=== PATIENT | female | born 1945 | race Caucasian/White ===

== ENCOUNTER 2016-08-04 14:46 | Emergency (ER) | payer OTHER ==
[2016-08-04] MEDS ORDERED: ASPIRIN PO STA (14:59)
--- NOTE | 2016-08-04 15:17 | EKG Report ---
Test Performed on : 08/04/2016 3:07:45 PM Test Reason : CP Blood Pressure : / mmHG Vent. Rate : 068 BPM Atrial Rate : 068 BPM P-R Int : 156 ms QRS Dur : 074 ms QT Int : 408 ms P-R-T Axes : 062 -07 057 degrees QTc Int : 433 ms Normal sinus rhythm. Normal ECG No previous ECGs available Unconfirmed Result
[2016-08-04 15:24] LABS: MANUAL DIFF NEEDED? NO
--- NOTE | 2016-08-04 15:27 | PROVIDER DOCUMENTATION ---
HPI-Chest Pain - General Source: patient - History of Present Illness-CP Location: reports: substernal Chest Pain Radiation: reports: jaw, arms (left) Quality of Pain: reports: dull Severity in ED: mild Onset/Duration: abrupt, other (2 weeks) Timing: still present, intermittent Context/Activities at Onset: reports: none Modifying Factors: improves with: nothing Associated Symptoms: denies: back pain, fatigue, headache, nausea, shortness of breath, vomiting Nitro Today/Relief: no nitro taken today Aspirin Treatment Today: 325 mg x 1, provided by ED Prior Chest Pain/Cardiac Workup: reports: no prior chest pain Similar Symptoms Previously?: No Recently Seen Here or By Another Healthcare Provider: No <Yandel Cardoza - Last Filed: 08/04/16 15:22> <Melania Clifford - Last Filed: 08/04/16 18:14> - General Chief Complaint: Chest Pain Stated Complaint: CHEST PAIN Time Seen by Provider: 08/04/16 15:09 Allergies/Adverse Reactions: Patient Allergies Allergy/AdvReac Type Severity Reaction Status Date / Time No Known Allergies Allergy Verified 08/04/16 15:30 Home Medications: Cyanocobalamin/Cobamamide [B12 5,000 Mcg Microlozenge] 2,500 mcg 08/04/16 Levothyroxine [Synthroid] 100 mcg DAILY 08/04/16 Simvastatin 10 mg 08/04/16 Valacyclovir HCl [Valacyclovir] 1 gm 08/04/16 - History of Present Illness-CP Nature of Presenting Problem: patient is a 70 y/o F that presents with chest pain that radiates to jaw and left arm that is intermitted for past two weeks. patient has no shortness of breath, n/v/, or back pain. patient has no history of CAD. hasn't taken nitro before as well (Yandel Cardoza) Review of Systems - Adult - REVIEW OF SYSTEMS - ADULT Constitutional: denies: chills, fever Eyes: denies: decreased vision, blurred vision, double vision Ears, Nose, Mouth & Throat: denies: ear pain, sinus problem, throat pain, throat swelling Cardiovascular: reports: chest pain. denies: palpitations, syncope Respiratory: denies: cough, shortness of breath, wheezing Gastrointestinal: denies: abdominal pain, diarrhea, nausea, vomiting Genitourinary: reports: no symptoms reported Musculoskeletal: reports: no symptoms reported Integumentary: reports: no symptoms reported Neurological: reports: no symptoms reported Psychiatric: reports: no symptoms reported Endocrine: reports: no symptoms reported Hematologic/Lymphatic: reports: no symptoms reported Allergic/Immunologic: reports: no symptoms reported All Other Systems: Reviewed and Negative <Yandel Cardoza - Last Filed: 08/04/16 15:22> Past History - Adult - PAST MEDICAL HISTORY-ADULT Review of Records: reports: Old Records Reviewed, Nursing Assessment Review, Medications Reviewed Musculoskeletal: reports: arthritis Endocrine/Immune: reports: thyroid disorder - PRIOR SURGERIES/PROCEDURES Surgical/Procedure History: reports: appendectomy - IMMUNIZATION STATUS Childhood Immunizations: See Nurse Assessment Flu Vaccine: See Nurse Assessment - FAMILY HISTORY Family History: reviewed, not pertinent - SOCIAL HISTORY Smoking: quit greater than 1 year, cigarettes Living Situation: family <Yandel Cardoza - Last Filed: 08/04/16 15:22> Physical Exam-General - PHYSICAL EXAM-ADULT Initial Vital Signs Reviewed: Yes - CONSTITUTIONAL General Appearance: alert, no apparent distress - EYES Eyes: PERRL/EOMI, pink conjunctivae - HEAD, EARS, NOSE, MOUTH & THROAT HENMT: normocephalic/atraumatic, moist mucous membranes, normal ENT inspection - NECK Neck: full range of motion, normal inspection. negative: lymphadenopathy - RESPIRATORY Respiratory: lungs clear, normal breath sounds, no respiratory distress, no accessory muscle use - CARDIOVASCULAR Cardiovascular: regular rate, rhythm, no edema, no murmur - GASTROINTESTINAL (ABDOMEN) Abdominal Exam: normal bowel sounds, non tender, soft, no organomegaly, no pulsatile mass - MUSCULOSKELETAL Back Exam: no CVA tenderness, no vertebral tenderness Extremity: normal range of motion, non-tender, normal inspection, no pedal edema - SKIN Integumentary: normal color, warm/dry - NEUROLOGIC Neurologic: grossly normal, no motor/sensory deficits - PSYCHIATRIC Psych/Mental Status: normal mood/affect, normal thought content, normal thought process, oriented x 3 <Yandle Cardoza - Last Filed: 08/04/16 15:22> Progress - EKG 1 Time of EKG reading by physician:: 15:07 EKG Read and Signed by:: Torsten Jones EKG Interpretation (*Must complete 3 of following elements*): Normal Rate: 68 Rhythm: NSR [place]: normal QRS: normal [place] Interval: normal ST Wave: normal <Ynadel Cardoza - Last Filed: 08/04/16 15:22> - REASSESSMENT Reassessment #1 Time Reassessed: 16:55 (STates not currently having chest pain. Discussed first round of labs and that we are waiting on a second set. ) Status: unchanged <Melania Clifford - Last Filed: 08/04/16 18:14> - PLAN OF CARE/RESULTS Progress/Plan/Lab Results: Vital Signs Temp Pulse Resp BP Pulse Ox 08/04/16 18:00 59 L 19 128/68 98 08/04/16 17:45 63 19 128/70 99 08/04/16 17:30 60 18 136/74 98 08/04/16 17:15 60 16 144/70 98 08/04/16 17:00 62 17 134/70 98 08/04/16 16:45 61 17 131/74 98 08/04/16 16:30 62 22 139/72 98 08/04/16 16:15 61 19 135/73 99 08/04/16 16:00 61 16 142/68 98 08/04/16 15:45 56 L 19 142/71 100 08/04/16 15:30 63 18 153/62 100 08/04/16 15:15 62 20 139/85 100 08/04/16 14:47 98.0 F 71 20 157/98 No Known Allergies Allergy (Verified 08/04/16 15:30) Cyanocobalamin/Cobamamide [B12 5,000 Mcg Microlozenge] 2,500 mcg 08/04/16 Levothyroxine [Synthroid] 100 mcg DAILY 08/04/16 Simvastatin 10 mg 08/04/16 Valacyclovir HCl [Valacyclovir] 1 gm 08/04/16 Laboratory 08/04/16 08/04/16 08/04/16 17:10 17:10 15:19 WBC RBC Hgb Hct MCV MCH MCHC RDW Std Deviation Plt Count MPV Immature Gran % (Auto) Neut % (Auto) Lymph % (Auto) [place] % (Auto) Eos % (Auto) Baso % (Auto) Immature Gran # (Auto) Neut # (Auto) Lymph # (Auto) [place] # (Auto) Eos # (Auto) Baso # (Auto) PT 12.4 INR 0.89 Sodium Potassium Chloride Carbon Dioxide Anion Gap BUN Creatinine Estimated GFR/1.73 m2 BUN/Creatinine Ratio Glucose Calculated Osmolality Calcium Total Bilirubin AST ALT Alkaline Phosphatase Creatine Kinase 72 Troponin T < 0.010 Total Protein Albumin Globulin Albumin/Globulin Ratio 08/04/16 08/04/16 08/04/16 15:19 15:19 15:19 WBC 7.81 RBC 3.90 L Hgb 11.9 L Hct 37.1 MCV 95.1 MCH 30.5 MCHC 32.1 L RDW Std Deviation 12.2 Plt Count 199 MPV 9.2 Immature Gran % (Auto) 0.1 Neut % (Auto) 65.3 Lymph % (Auto) 21.9 [place] % (Auto) 8.6 Eos % (Auto) 3.7 Baso % (Auto) 0.4 Immature Gran # (Auto) 0.01 Neut # (Auto) 5.10 Lymph # (Auto) 1.71 [place] # (Auto) 0.67 H Eos # (Auto) 0.29 Baso # (Auto) 0.03 PT INR Sodium 139 Potassium 3.9 Chloride 104 Carbon Dioxide 27 Anion Gap 8 BUN 18 Creatinine 0.7 Estimated GFR/1.73 m2 > 60 BUN/Creatinine Ratio 26 Glucose 108 H Calculated Osmolality 280 Calcium 9.7 Total Bilirubin 0.20 AST 24 ALT 21 Alkaline Phosphatase 54 Creatine Kinase Troponin T < 0.010 Total Protein 7.1 Albumin 4.2 Globulin 3.0 Albumin/Globulin Ratio 1.0 08/04/16 15:19 WBC RBC Hgb Hct MCV MCH MCHC RDW Std Deviation Plt Count MPV Immature Gran % (Auto) Neut % (Auto) Lymph % (Auto) [place] % (Auto) Eos % (Auto) Baso % (Auto) Immature Gran # (Auto) Neut # (Auto) Lymph # (Auto) [place] # (Auto) Eos # (Auto) Baso # (Auto) PT INR Sodium Potassium Chloride Carbon Dioxide Anion Gap BUN Creatinine Estimated GFR/1.73 m2 BUN/Creatinine Ratio Glucose Calculated Osmolality Calcium Total Bilirubin AST ALT Alkaline Phosphatase Creatine Kinase 82 Troponin T Total Protein Albumin Globulin Albumin/Globulin Ratio Orders Category Date Time Status CBC WITH ELECTRONIC DIFF [HEME] Stat Lab 08/04/16 15:19 Completed CK PROFILE [SP CHEM] Stat Lab 08/04/16 15:19 Completed CK PROFILE [SP CHEM] Stat Lab 08/04/16 17:10 Completed COMPREHENSIVE METABOLIC PANEL [CHEM] Stat Lab 08/04/16 15:19 Com[address]IME WITH INR PL [COAG] Stat Lab 08/04/16 15:19 Completed TROPONIN T Stat Lab 08/04/16 15:19 Completed TROPONIN T Stat Lab 08/04/16 17:10 Completed UA [URINALYSIS PL W/POSS RFLX CULT] [URINALYSIS] Stat Lab 08/04/16 15:36 Ordered Aspirin Med 08/04/16 14:59 Discontinued 325 mg PO STAT STA EKG [EKG] Stat Ther 08/04/16 14:59 Draft EKG [EKG] Stat Ther 08/04/16 16:55 Ordered (Melania Clifford) Departure <Yandel Cardoza - Last Filed: 08/04/16 15:22> - Departure Time of Disposition Order: 18:14 Certified Medical Emergency: Emergent <Melania Clifford - Last Filed: 08/04/16 18:14> - Departure DIAGNOSIS: Atypical chest pain Disposition: HOME 01 Condition: Stable Additional Instructions: Follow up with the possum trapper. ED Follow Up Instructions: You have been treated by a care provider in the Emergency Department. These instructions are being provided to you so you can have an understanding of how to care for yourself upon discharge. Upon discharge from the Emergency Department, you are responsible for making arrangements for follow-up care by a physician of your choice. Take all prescribed medications as directed. Return to the Emergency Department immediately for any new or worsening symptoms. You may call the Physician Referral phone number at [phone] to obtain a list of Physicians who are taking new patients. Attestation - Scribe Verification/Attestation Scribe:: Yandel Cardoza Acting as Scribe for:: Melania Clifford Scribe documention review:: This chart was documented by a scribe and accurately reflects the service the provider performed and the decisions made by the provider. - Physician/ Mid-level Attestation Patient care was provided by Mid-level provider (PLATFORM STAPLER/PA):: Yes Mid-level provider:: Melania Clifford Mid-level documentation review:: The Mid-level provider documentation, treatment plan and medical decision making was reviewed by the physician who agrees with all treatment and medical decision making by the MLP. <Yandel Cardoza - Last Filed: 08/04/16 15:22> Physician Attestation
[2016-08-04 15:28] LABS: BASO% 0.4 % (0.0-0.8); EOS# 0.29 X1000 (0.0-0.7); EOS% 3.7 % (0.0-10.0); HEMATOCRIT 37.1 % (37.0-47.0); HEMOGLOBIN 11.9 g/dL (12.0-16.0); IMM GRAN# 0.01 X1000 (0.0-0.04); IMM GRAN% 0.1 % (0.0-0.5); LYMPH# 1.71 X1000 (1.2-3.4); LYMPH% 21.9 % (20.5-51.1); MCH 30.5 PG (27-31); MCHC 32.1 g/dL (33-37); MCV 95.1 FL (81-99); MONO# 0.67 X1000 (0.11-0.59); MONO% 8.6 % (1.7-9.3); MPV 9.2 FL (7.4-10.4); NEUT% 65.3 % (42.2-75.2); PLT 199 X1000 (130-400)
[2016-08-04 15:51] LABS: INR 0.89 (0.86-1.15); PROTIME 12.4 Seconds (12.1-15.5)
[2016-08-04 16:03] LABS: AGAP 8; ALBUMIN 4.2 g/dL (3.5-5.0); ALKALINE PHOSPHATASE 54 U/L (32-104); BUN 18 mg/dL (8-22); CALCIUM 9.7 mg/dL (8.8-10.2); CHLORIDE 104 mmol/L (98-107); COSMO 280; GOT 24 U/L (10-30); GPT 21 U/L (10-36); POTASSIUM 3.9 mmol/L (3.5-5.1); SODIUM 139 mmol/L (136-145); TCO2 27 mmol/L (25-35); TOTAL PROTEIN 7.1 g/dL (6.3-8.3)
[2016-08-04 18:09] VITALS: BP 128/68
== END 2016-08-04 18:32 | disposition home or self-care (01) ==
LOC: P.ED 14:46
DX: R07.89 Other chest pain (principal); R68.84 Jaw pain; M79.602 Pain in left arm; M19.90 Unspecified osteoarthritis, unspecified site; E07.9 Disorder of thyroid, unspecified; Z79.899 Other long term (current) drug therapy; Z87.891 Personal history of nicotine dependence
CPT/HCPCS: 36415; 80053; 82550; 84484; 85025; 85610; 93005; 99283